=== PATIENT | female | born 1955 | race Caucasian/White ===

== ENCOUNTER → 2023-10-09 09:55 | Outpatient (CLI) | payer MEDICARE, OTHER, SELFPAY ==
[2023-10-09 11:06] LABS: Add Manual Diff / Slide Review NO; Basophils Absolute Auto 100 /uL (0-100); Eosinophils Absolute Auto 200 /uL (0-450); Eosinophils Percent Auto 2.9 % (2-4); Hematocrit 40.7 % (36-46); Hemoglobin 14.1 g/dL (12.0-16.0); Lymphocytes Absolute Auto 2500 /uL (1100-4500); Lymphocytes Percent Auto 37.8 % (25-40); Mean Corpuscular HGB Conc 34.6 % (30-36); Mean Corpuscular Hemoglobin 29.2 PG (26-34); Mean Corpuscular Volume 84.6 fL (80-100); Monocytes Absolute Auto 600 /uL (0-900); Monocytes Percent Auto 9.3 % (3-14); Neutrophils Absolute Auto 3200 /uL (1500-7000); Platelet Count 303 X10^3/uL (150-400); Red Blood Cell Count 4.82 X10^6/uL (4.0-5.2); Red Cell Distribution Width 13.1 % (11.6-14.8); White Blood Cell Count 6.5 X10^3/uL (4.5-11.0)
[2023-10-09 11:26] LABS: HEMOLYSIS < 15 (0-50); Iron 122 ug/dL (37-170)
[2023-10-09 11:34] LABS: Alanine Aminotransferase 15 IU/L (<35); Albumin 3.9 g/dL (3.5-5.0); Albumin Globulin Ratio 1.4 (1.0-2.8); Alkaline Phosphatase 69 U/L (38-126); Aspartate Aminotransferase 22 IU/L (14-36); BUN Creatinine Ratio 19.5 (6-22); Bilirubin Total 0.8 mg/dL (0.2-1.3); Blood Urea Nitrogen 15 mg/dL (7-17); Calcium 9.2 mg/dL (8.4-10.2); Carbon Dioxide 28 mmol/L (22-32); Chloride 107 mmol/L (98-107); Cholesterol 227 mg/dL (140-199); Estimated Glomerular Filt Rate > 60 mL/min (>60); Globulin 2.8 g/dL (1.7-4.1); Glucose 84 mg/dL (80-110); HDL Cholesterol 58 mg/dL (40-60); HEMOLYSIS < 15 (0-50); LDL Cholesterol Calculated 142 mg/dL (<100); Sodium 139 mmol/L (137-145); Total Protein 6.7 g/dL (6.3-8.2); Triglycerides 137 mg/dL (35-150)
[2023-10-09 11:35] LABS: Percent Iron Saturation 48 % (15-50); Total Iron Binding Capacity 253 ug/dL (265-497); Transferrin 215 mg/dL (206-381)
[2023-10-09 12:03] LABS: TSH w/ Reflex to FT4 2.68 uIU/mL (0.47-4.68)
[2023-10-09 12:19] LABS: Vitamin B12 501 pg/mL (239-931)
[2023-10-12 18:12] LABS: Interpretation Negative (Negative)
== END ==
PROVIDERS: PCP Family Medicine; Referring Provider Family Medicine; Visit Provider Family Medicine
DX: K29.60 Other gastritis without bleeding; E03.9 Hypothyroidism, unspecified; R53.83 Other fatigue
CPT/HCPCS: 36415; 80053; 80061; 82607; 83013; 83540; 83550; 84443; 85025

== ENCOUNTER → 2024-10-14 | Outpatient (CLI) | payer MEDICARE, OTHER, SELFPAY ==
--- NOTE | 2024-10-14 11:13 | DI.MG.S_ITS ---
MM screening mammo BI: 10/14/2024. BI-RADS: 1 CLINICAL: 69-year old female for bilateral screening mammogram. Tyrer-Cuzick lifetime risk of 3.8%. No personal or first-degree family history of breast cancer. PRIOR EXAMS 01/03/2022, 09/03/2018, 07/30/2019, 09/19/2014. MAMMOGRAPHY TECHNIQUE: 2D and 3D (tomosynthesis) digital mammographic views obtained, with additional images as needed for full coverage. Current study was also evaluated with a Computer Aided Detection (CAD) system. DENSITY B. There are scattered areas of fibroglandular density. MAMMOGRAPHY FINDINGS Bilateral: No suspicious mass, asymmetry, microcalcification, or other abnormality seen. IMPRESSION: * No evidence of malignancy. RECOMMENDATIONS Bilateral * Annual screening mammography. OVERALL ASSESSMENT CATEGORY BI-RADS-1: Negative. The [employer] recommends annual screening mammography beginning at age 40 for women with average risk of breast cancer. ELECTRONICALLY SIGNED: Kay James M.D. on 10/20/2024 at 01:35:27 PM PT Interpreting Station ID: [id number]
== END ==
LOC: MAMMO 11:13
PROVIDERS: PCP Family Medicine; Referring Provider Family Medicine; Visit Provider Family Medicine
DX: Z12.31 Encounter for screening mammogram for malignant neoplasm of breast (principal)
CPT/HCPCS: 77063; 77067

== ENCOUNTER → 2025-01-09 10:02 | Outpatient (CLI) | payer MEDICARE, OTHER, SELFPAY ==
[2025-01-09 10:42] LABS: Add Manual Diff / Slide Review NO; Basophils Absolute Auto 100 /uL (0-100); Basophils Percent Auto 0.9 % (0-2); Eosinophils Absolute Auto 200 /uL (0-450); Eosinophils Percent Auto 3.7 % (2-4); Hematocrit 40.9 % (36-46); Hemoglobin 14.3 g/dL (12.0-16.0); Lymphocytes Absolute Auto 2200 /uL (1100-4500); Lymphocytes Percent Auto 36.2 % (25-40); Mean Corpuscular Hemoglobin 30.2 PG (26-34); Mean Corpuscular Volume 86.3 fL (80-100); Monocytes Absolute Auto 600 /uL (0-900); Monocytes Percent Auto 10.2 % (3-14); Neutrophils Absolute Auto 3000 /uL (1500-7000); Platelet Count 300 X10^3/uL (150-400); Red Blood Cell Count 4.74 X10^6/uL (4.0-5.2); White Blood Cell Count 6.1 X10^3/uL (4.5-11.0)
[2025-01-09 11:03] LABS: Alanine Aminotransferase 28 IU/L (<35); Albumin 4.1 g/dL (3.5-5.0); Albumin Globulin Ratio 1.6 (1.0-2.8); Alkaline Phosphatase 74 U/L (38-126); Aspartate Aminotransferase 35 IU/L (14-36); BUN Creatinine Ratio 15.6 (6-22); Bilirubin Total 0.7 mg/dL (0.2-1.3); Blood Urea Nitrogen 12 mg/dL (7-17); Calcium 9.2 mg/dL (8.4-10.2); Carbon Dioxide 27 mmol/L (22-32); Chloride 106 mmol/L (98-107); Cholesterol 259 mg/dL (140-199); Estimated Glomerular Filt Rate > 60 mL/min (>60); Globulin 2.5 g/dL (1.7-4.1); Glucose 87 mg/dL (70-99); HDL Cholesterol 64 mg/dL (40-60); HEMOLYSIS < 15 (0-50); LDL Cholesterol Calculated 171 mg/dL (<100); Potassium 4.1 mmol/L (3.4-5.1); Sodium 138 mmol/L (137-145); Total Protein 6.6 g/dL (6.3-8.2); Triglycerides 118 mg/dL (35-150)
[2025-01-09 11:25] LABS: TSH w/ Reflex to FT4 3.04 uIU/mL (0.47-4.68)
== END ==
PROVIDERS: PCP Family Medicine; Referring Provider Family Medicine; Visit Provider Family Medicine
DX: R42 Dizziness and giddiness (principal); E78.5 Hyperlipidemia, unspecified; I10 Essential (primary) hypertension; R53.83 Other fatigue
CPT/HCPCS: 36415; 80053; 80061; 84443; 85025

== ENCOUNTER 2025-03-07 20:14 | Emergency (ER) | payer MEDICARE, OTHER, SELFPAY ==
[2025-03-07] VITALS (12 sets, daily range): BP systolic 173–225; BP diastolic 75–109; PULSE 86–117; RESP 14–21; TEMP 36.9; O2SAT 96–99; BMI 26.9
--- NOTE | 2025-03-07 20:17 | EKG_ITS ---
[address] [address] [place] [address] Test Date: 2025-03-07 Pat Name: Asiya Amador Department: [facility] Room: Gender: Female Funeral Service Manager: RYLEY CHING : 1955 Requested By: Order Number: [id number] Reading MD: Michael Guadalupe Measurements Intervals [place] Rate: 116 P: 38 DE: 170 QRS: 54 QRSD: 90 T: 23 QT: 358 QTc: 497 Interpretive Statements Sinus tachycardia with premature atrial complexes Nonspecific ST abnormality Electronically Signed On 03-17-2025 13:45:07 PDT by Michael Guadalupe
[2025-03-07 21:04] LABS: INR 1.0 (0.9-1.3); Prothrombin Time 11.0 SECONDS (9.4-12.5)
[2025-03-07 21:05] LABS: Add Manual Diff / Slide Review NO; Hematocrit 41.8 % (36-46); Hemoglobin 14.8 g/dL (12.0-16.0); Lymphocytes Absolute Auto 3600 /uL (1100-4500); Mean Corpuscular HGB Conc 35.4 % (30-36); Mean Corpuscular Hemoglobin 30.0 PG (26-34); Mean Corpuscular Volume 85.0 fL (80-100); Platelet Count 313 X10^3/uL (150-400)
[2025-03-07 21:07] LABS: PTT Partial Thromboplastin Tim 30 SECONDS (25.1-36.5)
[2025-03-07 21:08] LABS: Alanine Aminotransferase 20 IU/L (<35); Albumin 4.6 g/dL (3.5-5.0); Albumin Globulin Ratio 1.4 (1.0-2.8); Alkaline Phosphatase 99 U/L (38-126); Blood Urea Nitrogen 14 mg/dL (7-17); Calcium 8.9 mg/dL (8.4-10.2); Carbon Dioxide 24 mmol/L (22-32); Chloride 105 mmol/L (98-107); Creatine Kinase 101 U/L (30-135); Estimated Glomerular Filt Rate > 60 mL/min (>60); Globulin 3.3 g/dL (1.7-4.1); Glucose 135 mg/dL (70-99); HEMOLYSIS 24 (0-50); Lipase 124 U/L (23-300); Magnesium 1.9 mg/dL (1.6-2.3); Potassium 3.5 mmol/L (3.4-5.1); Sodium 140 mmol/L (137-145); Total Protein 7.9 g/dL (6.3-8.2)
[2025-03-07 21:19] LABS: NT-proBNP (BNP-Adult 18+) 113 pg/mL (<125); Troponin I < 0.012 ng/mL (0.01-0.034)
--- NOTE | 2025-03-07 22:54 | ED.GENADULT ---
HPI - General Adult General Chief complaint: Hypertension Stated complaint: possible arrhythmia Time Seen by Provider: 03/07/25 22:37 Source: patient Mode of arrival: Family Vehicle History of Present Illness HPI narrative: 70-year-old female patient with a history of hypertension, hypothyroidism, dyslipidemia and anxiety who complains of palpitations with extra and skipped beats occurring earlier this evening and then diminishing when she came to the ER. No chest pain or shortness of breath. Also her blood pressure was higher than normal but she did not take her blood pressure medication today. Currently feeling better than earlier this evening Related Data Home Medications ?Medication ?Instructions ?Recorded ?Confirmed multivitamin 1 tab PO DAILY 10/05/23 01/12/25 loratadine 10 mg tablet (Allergy 10 mg PO DAILY 12/12/24 01/12/25 Relief (loratadine)) Previous Rx's ?Medication ?Instructions ?Recorded acyclovir 400 mg tablet 400 mg PO TID #30 tabs 01/22/24 levothyroxine 125 mcg capsule 125 mcg PO DAILY #90 caps 06/22/24 losartan 25 mg tablet 25 mg PO DAILY #90 tabs 01/12/25 Allergies Allergy/AdvReac Type Severity Reaction Status Date / Time No Known Drug Allergies Allergy Verified 01/12/25 15:23 Review of Systems Constitutional Constitutional: Reports as per HPI and Reports system reviewed and no additional complaints, except as documented Cardiovascular Cardiovascular: Reports as per HPI and Denies dyspnea Respiratory Respiratory: Denies cough and Denies dyspnea Gastrointestinal Gastrointestinal: Denies abdominal pain and Denies vomiting Neurologic Neurologic: Reports system reviewed and no additional complaints, except as documented Patient History Medical History (Updated 03/07/25 @ 23:16 by Sunil Cannon MD) Wears glasses Actinic keratosis (~2005) Allergies Sciatica (~2015) Shoulder pain (~2022) Osteoporosis History of herpes simplex infection Mumps Measles Chicken pox Glaucoma (~2022) Cataracts, bilateral (~2021) Hemorrhoid Thyroid nodule (~2009) Hyperlipidemia (~2019) HTN (hypertension) Reflux gastritis Tinnitus (~2020) Hypothyroidism (~1997) Family History (Updated 10/19/23 @ 21:30 by Mireille Monk) Father History of heart disease Hypertension Mother Cancer Diabetes mellitus Grandfather Blood plasma poisoning Grandfather History of heart disease Grandmother Diabetes mellitus Social History marital status: unmarried,living together Exam Initial Vital Signs Initial Vital Signs: Vital Signs Temperature 98.4 F 03/07/25 20:27 Pulse Rate 117 H 03/07/25 20:27 Respiratory Rate 20 03/07/25 20:27 Blood Pressure 225/109 H 03/07/25 20:27 Pulse Oximetry 98 03/07/25 20:27 Oxygen Delivery Method Room Air 03/07/25 20:27 Const General: cooperative, healthy appearing, comfortable, well developed and No acute distress [facility] Head: normal to inspection and normocephalic Neck Neck: normal visual inspection Chest Chest: normal inspection of the chest Resp Effort & Inspection: normal respiratory effort Auscultation: clear to auscultation bilaterally Cardio Rate: regular rate Rhythm: regular rhythm Course Orders Ordered: ED Orders 03/07/25 20:17 EKG-12 Lead Stat 03/07/25 20:50 Complete Blood Count AUTO DIFF Stat Comprehensive Metabolic Panel Stat Lipase Stat Magnesium Stat NT-proBNP (BNP-Adult 18+) Stat PTT Partial Thromboplastin Devendra Stat Prothrombin Time INR Stat Troponin & CK Cardiac Panel Stat Vital Signs Vital signs: Vital Signs - 8 hr 03/07/25 23:00 03/07/25 23:00 Pulse Rate 90 Respiratory Rate 16 Blood Pressure 185/79 H Pulse Oximetry 97 Oxygen Delivery Method Room Air Medical Decision Making Medical Records Medical records reviewed: Yes I reviewed the patient's medical records. Lab Data Lab results reviewed: Yes I reviewed the patient's lab results. Lab results narrative: CBC and CMP unremarkable. 03/07/25 20:50 03/07/25 20:50 Labs: Lab Results 03/07/25 Range/Units 20:50 WBC 8.5 (4.5-11.0) X10^3/uL RBC 4.92 (4.0-5.2) X10^6/uL Hgb 14.8 (12.0-16.0) g/dL Hct 41.8 (36-46) % MCV 85.0 (80-100) fL MCH 30.0 (26-34) PG MCHC 35.4 (30-36) % RDW 13.0 (11.6-14.8) % Plt Count 313 (150-400) X10^3/uL Neut % (Auto) 44.3 L (50-75) % Lymph % (Auto) 42.2 H (25-40) % Burnet % (Auto) 9.5 (3-14) % Eos % (Auto) 3.3 (2-4) % Baso % (Auto) 0.7 (0-2) % Neut # (Auto) 3800 (8159-2168) /uL Lymph # (Auto) 3600 (4355-4638) /uL Burnet # (Auto) 800 (0-900) /uL Eos # (Auto) 300 (0-450) /uL Baso # (Auto) 100 (0-100) /uL PT 11.0 (9.4-12.5) SECONDS INR 1.0 (0.9-1.3) APTT 30 (25.1-36.5) SECONDS Sodium 140 (137-145) mmol/L Potassium 3.5 (3.4-5.1) mmol/L Chloride 105 (98-107) mmol/L Carbon Dioxide 24 (22-32) mmol/L BUN 14 (7-17) mg/dL Creatinine 0.79 (0.52-1.04) mg/dL Estimated GFR > 60 (>60) mL/min BUN/Creatinine Ratio 17.7 (6-22) Glucose 135 H (70-99) mg/dL Calcium 8.9 (8.4-10.2) mg/dL Magnesium 1.9 (1.6-2.3) mg/dL Total Bilirubin 0.5 (0.2-1.3) mg/dL AST 31 (14-36) IU/L ALT 20 (<35) IU/L Alkaline Phosphatase 99 (38-126) U/L Total Creatine Kinase 101 (30-135) U/L Troponin I < 0.012 (0.01-0.034) ng/mL NT-Pro-B Natriuret Pep 113 (<125) pg/mL Total Protein 7.9 (6.3-8.2) g/dL Albumin 4.6 (3.5-5.0) g/dL Globulin 3.3 (1.7-4.1) g/dL Albumin/Globulin Ratio 1.4 (1.0-2.8) Lipase 124 (23-300) U/L ECG Data Attestation: I personally reviewed and interpreted this ECG as follows: (Sinus tachycardia at 116 with occasional PACs. Nonspecific ST abnormality. Otherwise unremarkable) MDM Narrative Medical decision making narrative: Patient with subjective skip and extra beats/palpitations which are evident on EKG. However these appear to be benign PACs. Her initial EKG was tachycardic but when I saw her her heart rate was in the 90s. No other abnormalities other than blood pressure slightly out of control because she did not take her medicine today. No need for emergent intervention. She will resume her medication and monitor symptoms. We need event monitor if symptoms persist. Return to the ER if worse Discharge Plan Departure Patient Disposition: Home Clinical Impression: Heart palpitations, Atrial premature beats, Elevated blood pressure reading Instructions: DI for High Blood Pressure, DI for Palpitations Activity Restrictions/Additional Instructions: Plan: Hydration and rest. Resume taking blood pressure medication and monitoring blood pressure. Monitor palpitations and follow up closely with your doctor. May need event monitor or Holter monitor. Return to the ER if worse. Prescriptions: No Action acyclovir 400 mg tablet 400 mg PO TID Qty: 30 1RF Rx Instructions: take at first sign of cold sore, take for 5 days multivitamin Tablet 1 tab PO DAILY loratadine [Allergy Relief (loratadine)] 10 mg tablet 10 mg PO DAILY losartan 25 mg tablet 25 mg PO DAILY Qty: 90 2RF levothyroxine 125 mcg capsule 125 mcg PO DAILY Qty: 90 2RF Referrals: Cait Neal MD [Primary Care Provider, Family Practice] Stand Alone Forms: Patient Portal/API
--- NOTE | 2025-03-07 23:25 | PC.NURSE ---
pt BP still elevated during discharge, pt reports she JUST now took her prescription medication losartan. pt deemed safe for DC Dr. Cannon.
== END 2025-03-07 23:27 | disposition home or self-care (01) ==
PROVIDERS: Emergency Provider Emergency Medicine; PCP Family Medicine
DX: R00.2 Palpitations (principal); I10 Essential (primary) hypertension; R00.0 Tachycardia, unspecified; I49.1 Atrial premature depolarization
CPT/HCPCS: 36415; 80053; 82550; 83690; 83735; 83880; 84484; 85025; 85610; 85730; 93005; 99283; 99284